=== PATIENT | female | born 1990 | race Hispanic/Latino ===

== ENCOUNTER 2017-02-01 23:49 | Emergency (ER) | payer OTHER ==
[2017-02-02] MEDS ORDERED: Ondansetron HCl/PF 4 MG/2 ML Vial ONE (00:35)
[2017-02-02 00:41] LABS: #Eosinphils 0.2 thou/uL (0.0-0.7); #Lymphocytes 1.8 thou/uL (1.20-3.40); #Monocytes 0.5 thou/uL (0.11-0.59); #Neutrophils 5.8 thou/uL (1.40-6.50); %Basophils 0.5 % (0.0-1.0); %Eosinophils 2.2 % (0.0-10.0); %Lymphocytes 21.8 % (21.0-51.0); %Monocytes 5.6 % (0.0-10.0); Bilirubin Negative (Negative); Blood, Urine Negative (Negative); Glucose, Urine (Dipstick) Negative (Negative); Ketone, Urine Negative (Negative); Mean Platelet Volume 7.3 fL (7.4-10.4); Nitrite Negative (Negative); Protein, Urine (Dipstick) Negative (Neg-Trace); Red Blood Cell (RBC) Count 4.24 mill/uL (4.20-5.40); White Blood Cell (WBC) Count 8.3 thou/uL (4.8-10.8)
[2017-02-02 00:44] LABS: Bacteria/HPF 3+ HPF (None Seen); Hyaline Casts/LPF 4-6 HYALINE CAST LPF (0-3 Hyaline)
[2017-02-02 01:16] LABS: ALT (SGPT) 9 U/L (8-55); AST (SGOT) 14 U/L (5-34); Alkaline Phosphatase 51 U/L (40-150); Anion Gap 11 mmol/L (10-20); BUN (Urea Nitrogen) 4 mg/dL (7.0-18.7); Bilirubin, Total 0.5 mg/dL (0.2-1.2); Calc. Creatinine Clearance 0 mL/min (70-130); Calcium 8.8 mg/dL (7.8-10.44); Carbon Dioxide 23 mmol/L (22-29); Chloride 104 mmol/L (98-107); Estimated GFR-MDRD Greater than 90; Globulin 3.4 g/dL (2.4-3.5); Lipase 28 U/L (8-78); Protein, Total 7.1 g/dL (6.0-8.3)
[2017-02-02] MEDS ORDERED: Potassium Chloride 20 MEQ TAB ONE (01:29)
== END 2017-02-02 02:16 | disposition home or self-care (01) ==
LOC: ERS 23:49
DX: O21.1 Hyperemesis gravidarum with metabolic disturbance (principal); E86.0 Dehydration; O23.12 Infections of bladder in pregnancy, second trimester; Z3A.18 18 weeks gestation of pregnancy
CPT/HCPCS: 80053; 81003; 81015; 83690; 85025; 87086; 96361; 96374; 96375; J0696; J2405

== ENCOUNTER 2017-07-17 00:28 | Day surgery (SDC) | payer OTHER ==
[2017-07-17 01:00] VITALS: BP 110/70; TEMP 98.8; BMI 26.1
--- NOTE | 2017-07-17 01:44 | PDOC.LDHP ---
Labor and Delivery H&P Chief complaint: contractions HPI: 26 year old at 39 wk 0 days based on 6.2 wk sono with FER of 07/24/2017 presents with contractions since 13:00 today. She states that they were originally 30 minutes apart and started to get closer together. She feels them approximately every 20 minutes. She denies any loss of fluid, vaginal discharge , vaginal bleeding, N/V/D, or fever. Patient states her has been uncomplicated except for anemia of which required an iron transfusion on 06/17/2017. She has been taking iron BID and PNV. Patient has a history of infant at one day of age after home delivery in [facility]. Cause of is unknown. ROS: General: Denies fever, chills, loss of appetite HEENT: Denies headache, congestion, sore throat Cards: Denies chest pain or palpitations Resp: Denies cough or shortness of breath GI: Endorses contractions, Denies RUQ pain, N/V/D : Denies LOF, vaginal bleeding, vaginal discharge Psych: Denies anxiety or depression Current gestational age (weeks): 39 Due date: 07/24/17 Dating criteria: first trimester ultrasound (6.2 wk) Grav: 3 Para: 2 OB History Details: 1. sIUP at 39.0 wks 2. GBS negative 3. Anemia of s/p iron transfusion on 06/17/2017 4. Bacterial vaginosis and yeast infection s/p treatment 5. UTI in s/p treatment with CM 6. Hx of , cause unknown Current complications: other (anemia of ) Abnormal US findings: No Past Medical History: No significant PMH Current medications: pre-ceci vitamins, iron Previous surgical history: other (right hand surgery) Social history: none - Physical Exam Vital signs reviewed and normal: yes General: NAD Heart: RRR Lungs: nonlabored breathing Abdomen: gravid Extremeties: no edema FHT: category 1, variability present [place] contractions every: q8-10 min - Vaginal Exam cm dilated: 4 (Nurse @ 1:07) Effacement: 50% Station: -3 - OB Labs Blood type: O RH: positive Antibody Screen: negative HIV: negative RPR: negative HEPSAg: negative 1 hour GCT: negative GBS: negative Rubella: immune - Assessment Term , latent labor - Plan Plan: observation in L&D -: Plan for cervical check in 2 hours. If no cervical change at that time will d/c patient home with return precautions. If there is cervical change, then will admit to L&D for expectant management. <Katiuska Walker - Last Filed: 07/17/17 01:55> <Bola Guan - Last Filed: 07/17/17 02:27> Allergies/Adverse Reactions: Allergies Allergy/AdvReac Type Severity Reaction Status Date / Time No Known Drug Allergies Allergy Verified 07/17/17 00:49 Attending Addendum - Attending Addendum Date/Time: 07/17/17 0227 I personally evaluated the patient and discussed the management with Dr. Fernandez. I agree with the History, Examination, Assessment and Plan. <Bola Guan - Last Filed: 07/17/17 02:27>
--- NOTE | 2017-07-17 03:33 | PDOC.LDPN ---
Labor & Delivery Progress Note - Subjective Subjective: comfortable - Objective Vital signs reviewed and normal: yes General: NAD Uterine fundus: non tender SVE: by nurse @ 3:00 Dilation: 4 Effacement: 50% Station: -3 FHT: category 1, variability present [place] contractions every: q3 min - Assessment (1) Term Code(s): Z34.80 - ENCOUNTER FOR SUPRVSN OF NORMAL , UNSP TRIMESTER Current Visit: Yes Status: Acute Comment: 26 year old at 39.0 wks based on 6.2 wk sono presents with contractions - Cervical check at 03:00 unchanged from 01:00 - Contractions have become more regular and closer together at q3 min, pt relatively asymptomatic during contractions - Plan to d/c patient home with return precautions; Return precautions discussed via lead maintenance technician phone (2) Anemia affecting Code(s): O99.019 - ANEMIA COMPLICATING , UNSPECIFIED TRIMESTER Current Visit: Yes Status: Acute Comment: - s/p iron transfusion on 2017 - Continue iron BID -: D/C home with return precautions <Katiuska Walker - Last Filed: 07/17/17 03:28> Attending Addendum - Attending Addendum Date/Time: 07/17/17 0337 I personally evaluated the patient and discussed the management with Dr. Fernandez. I agree with the History, Examination, Assessment and Plan. <Bola Guan - Last Filed: 07/17/17 03:38>
== END 2017-07-17 03:35 | disposition home or self-care (01) ==
LOC: L&D/OP 00:28
PROVIDERS: ATTEND Obstetrics & Gynecology
DX: O47.1 False labor at or after 37 completed weeks of gestation (principal); O99.013 Anemia complicating pregnancy, third trimester; D64.9 Anemia, unspecified; Z3A.39 39 weeks gestation of pregnancy; Z79.899 Other long term (current) drug therapy; Z98.890 Other specified postprocedural states

== ENCOUNTER 2017-07-17 04:49 | Inpatient (IN) | payer MEDICAID, OTHER, SELFPAY ==
[2017-07-17 05:07] VITALS: BMI 26.1
[2017-07-17] MEDS ORDERED: Acetaminophen 500 MG TAB PO PRN ×2 (05:54→06:47)
--- NOTE | 2017-07-17 06:08 | PDOC.LDHP ---
Labor and Delivery H&P Chief complaint: contractions HPI: 26 year old at 39 wk 0 days based on 6.2 wk sono with FER of 07/24/2017 presents with contractions since 13:00 today. She states that they were originally 30 minutes apart and started to get closer together. She feels them approximately every 5-10 minutes. She denies any loss of fluid, vaginal discharge, N/V/D, or fever. Patient was just discharged approximately 2 hours ago as she had no cervical change within a 2 hour period. Her contractions were closer together, but it was explained that there are two stages of labor, latent and active. She was informed that she was in latent labor and that could last for an unknown period of time from hours to weeks. She was discharged home with return precautions. She returned stating her contractions had become more intense. She has been feeling them every 5-10 minutes. Patient did endorse vaginal bleeding after her last cervical check but states it is no longer present. Patient states her has been uncomplicated except for anemia of which required an iron transfusion on 06/17/2017. She has been taking iron BID and PNV. Patient has a history of infant at one day of age after home delivery in [facility]. Cause of is unknown. ROS: General: Denies fever, chills, loss of appetite HEENT: Denies headache, congestion, sore throat Cards: Denies chest pain or palpitations Resp: Denies cough or shortness of breath GI: Endorses contractions, Denies RUQ pain, N/V/D. Endorses contractions. : Denies LOF, vaginal bleeding, vaginal discharge Psych: Denies anxiety or depression Current gestational age (weeks): 39 Due date: 07/24/17 Dating criteria: last menstrual period, first trimester ultrasound Grav: 3 Para: 2 OB History Details: 1. sIUP at 39.0 wks 2. GBS negative 3. Anemia of s/p iron transfusion on 06/17/2017 4. Bacterial vaginosis and yeast infection s/p treatment 5. UTI in s/p treatment with CM 6. Hx of , cause unknown Current complications: other (anemia of ) Abnormal US findings: No Past Medical History: None Current medications: pre-ceci vitamins, iron Previous surgical history: other (right hand surgery) - Physical Exam Vital signs reviewed and normal: yes General: NAD, breathing through contractions Heart: RRR Lungs: nonlabored breathing Abdomen: gravid Extremeties: no edema FHT: category 1, variability present [place] contractions every: irregular - Vaginal Exam cm dilated: 4 (nurse @ 05:00) Effacement: 50% Station: -3 - OB Labs Blood type: O RH: positive Antibody Screen: negative HIV: negative RPR: negative HEPSAg: negative 1 hour GCT: negative GBS: negative Rubella: immune - Assessment Term , Latent labor - Plan -: Plan for cervical check in 2 hours. If no cervical change at that time will d/c patient home with return precautions. If there is cervical change, then will admit to L&D for expectant management. Pain control with tylenol at this time. Course of labor was discussed with patient in detail. <Katiuska Walker - Last Filed: 07/17/17 06:28> <Bola Guan - Last Filed: 07/17/17 07:19> Allergies/Adverse Reactions: Allergies Allergy/AdvReac Type Severity Reaction Status Date / Time No Known Drug Allergies Allergy Verified 07/17/17 00:49 Attending Addendum - Attending Addendum Date/Time: 07/17/17718 I personally evaluated the patient and discussed the management with Dr. Fernandez. I agree with the History, Examination, Assessment and Plan. <Bola Guan - Last Filed: 07/17/17 07:19>
[2017-07-17] MEDS ORDERED: Ibuprofen 800 MG TAB PO PRN (06:47)
[2017-07-17] MEDS ORDERED: LR / Pitocin 40 units/1000 ml 1,000 ML IV PRN (06:47)
[2017-07-17] MEDS ORDERED: Lidocaine 1% (PF) 30 ML VIAL SC PRN (06:47)
[2017-07-17] MEDS ORDERED: Promethazine HCl 25 MG/ML VIAL IM PRN (06:47)
[2017-07-17] MEDS ORDERED: Ondansetron HCl/PF 4 MG/2 ML Vial IVP PRN (06:47)
--- NOTE | 2017-07-17 06:54 | PDOC.LDPN ---
Labor & Delivery Progress Note - Subjective Subjective: painful contractions - Objective Vital signs reviewed and normal: yes General: breathing through contractions Uterine fundus: non tender SVE: By Aaron @ 06:45 Dilation: 5 Effacement: 50% Station: -2 FHT: category 1, variability present [place] contractions every: irregular - Assessment (1) Anemia affecting Code(s): O99.019 - ANEMIA COMPLICATING , UNSPECIFIED TRIMESTER Current Visit: No Status: Acute Comment: - s/p iron transfusion on 2017 - Continue iron BID (2) Term Code(s): Z34.80 - ENCOUNTER FOR SUPRVSN OF NORMAL , UNSP TRIMESTER Current Visit: No Status: Acute Comment: 26 year old at 39.0 wks based on 6.2 wk sono presents with contractions - Pt returned with contractions q10 minutes and stronger - Initial cervical check at 5:00 was 4/40/-3; 2 hours later cervical check 5/50/ -2 - Will admit to L&D - Patient desires epidural - Will continue expectant management -: Expectant management. Desires epidural. <Katiuska Walker - Last Filed: 07/17/17 06:52> Attending Addendum - Attending Addendum Date/Time: 07/17/17 0720 I personally evaluated the patient and discussed the management with Dr. Fernandez. I agree with the History, Examination, Assessment and Plan. <Bola Guan - Last Filed: 07/17/17 07:21>
[2017-07-17] MEDS: Lactated Ringer's 1,000 ML IV SCH ×2 (07:21→08:30)
[2017-07-17 07:36] LABS: Hemoglobin 11.9 g/dL (12.0-16.0); Mean Corpuscular HGB CONC 33.8 g/dL (32.0-36.0); Mean Corpuscular Hemoglobin 26.6 pg (27.0-31.0); Mean Corpuscular Volume 78.8 fl (81.0-99.0); Mean Platelet Volume 9.8 fL (7.4-10.4); Platelet Count 185 thou/uL (130-400); RBC Distribution Width 19.9 % (11.5-14.5); Red Blood Cell (RBC) Count 4.47 mill/uL (4.20-5.40); White Blood Cell (WBC) Count 7.9 thou/uL (4.8-10.8)
[2017-07-17] MEDS ORDERED: Bupivacaine 0.5% 20 ML, fentaNYL Citrate/PF 400 MCG in Sodium Chloride 0.9% 72 ML EPIDURAL SCH ×2 (07:45→09:15)
[2017-07-17] MEDS ORDERED: DISCONTINUE ALL PREVIOUS NARCOTICS FS SCH (07:45)
[2017-07-17 08:20] LABS: HBSAg Index 0.18 S/CO (0-0.99); Hep B Surf Ag Non-Reactive S/CO (NonReactive); Syphilis Antibody Nonreactive (Nonreactive); Syphilis Antibody Index 0.06 S/CO (<1.00 Non-Reactive)
[2017-07-17] MEDS ORDERED: Eucerin (Mineral Oil/Petrolatum,White) 30 gm Jar TOP PRN (08:58)
[2017-07-17] MEDS ORDERED: ePHEDrine/0.9% NaCl/PF SYRINGE 50 mg/10 ml SLOW IVP PRN (08:58)
[2017-07-17] MEDS ORDERED: Lactated Ringer's 500 ML IV PRN (08:58)
[2017-07-17] MEDS ORDERED: Acetaminophen 325 MG TAB PO PRN (08:58)
[2017-07-17] MEDS ORDERED: Naloxone HCl 0.4 mg/ml Vial IVP PRN ×2 (08:58)
[2017-07-17] MEDS ORDERED: Fentanyl 4mcg/Marcaine 0.1% Cassette 100 ML EPIDURAL SCH (09:00)
[2017-07-17] MEDS ORDERED: Communication Order-Pharmacy FS SCH (09:00)
[2017-07-17] MEDS ORDERED: LR 500 ML/Oxytocin 10 units 500 ML ONE (10:07)
--- NOTE | 2017-07-17 10:13 | PDOC.LDPN ---
Labor & Delivery Progress Note - Subjective Subjective: comfortable - Objective Vital signs reviewed and normal: yes General: resting Uterine fundus: non tender Dilation: 7.5 Effacement: 100% Station: 0 FHT: category 1 (150/mod/+accel/no decel) [place] contractions every: q8-10 - Assessment (1) Anemia affecting Code(s): O99.019 - ANEMIA COMPLICATING , UNSPECIFIED TRIMESTER Current Visit: No Status: Acute Comment: - s/p iron transfusion and iron supplementation - H&H 11.9/35.2 (2) Term Code(s): Z34.80 - ENCOUNTER FOR SUPRN OF NORMAL , UNSP TRIMESTER Current Visit: No Status: Acute Comment: 26 year old at 39.0 wks based on 6.2 wk sono presents with contractions - Last check 7.5/100/0, contractions spaced out - Will start pitocin - Comfortable now with epidural Plan: pitocin for augmentation
[2017-07-17] MEDS ORDERED: LR 500 ML/Oxytocin 10 units 500 ML IV SCH (10:30)
[2017-07-17] MEDS ORDERED: Bupivacaine 0.25% HCL 30 ML VIAL ONE (11:11)
--- NOTE | 2017-07-17 11:28 | PDOC.LDPN ---
Labor & Delivery Progress Note - Subjective Subjective: comfortable - Objective Vital signs reviewed and normal: yes General: resting Uterine fundus: non tender Dilation: 8 Effacement: 100% Station: 0 FHT: category 1 (150/mod/+accel/no decel) [place] contractions every: q2-8 min - Assessment (1) Anemia affecting Code(s): O99.019 - ANEMIA COMPLICATING , UNSPECIFIED TRIMESTER Current Visit: No Status: Acute Comment: - s/p iron transfusion and iron supplementation - H&H 11.9/35.2 (2) Term Code(s): Z34.80 - ENCOUNTER FOR SUPRVSN OF NORMAL , UNSP TRIMESTER Current Visit: No Status: Acute Comment: 26 year old at 39.0 wks based on 6.2 wk sono presents with contractions - Now 8/100/0 - Continue pitocin, consider AROM at next check if no further change - Comfortable with epidural (3) Hx of in prior , currently Code(s): O09.299 - SUPRVSN OF PREG W POOR REPRODCTV OR OBSTET HISTORY, UNSP TRI Current Visit: Yes Status: Acute Comment: - Delivery in [facility] - on DOL 1, etiology unknown - testing all reassuring Plan: continue plan of care, pitocin for augmentation
--- NOTE | 2017-07-17 12:32 | PDOC.LDPN ---
Labor & Delivery Progress Note - Subjective Subjective: comfortable - Objective Vital signs reviewed and normal: yes General: resting Uterine fundus: non tender Dilation: 10 Effacement: 100% Station: 0 FHT: category 1 [place] contractions every: q2-8 AROM: clear fluid - Assessment (1) Anemia affecting Code(s): O99.019 - ANEMIA COMPLICATING , UNSPECIFIED TRIMESTER Current Visit: No Status: Acute Qualifiers: Trimester: unspecified trimester Qualified Code(s): O99.019 - Anemia complicating , unspecified trimester Comment: s/p iron transfusion and iron supplementation H&H 11.9/35.2 (2) Term Code(s): Z34.80 - ENCOUNTER FOR SUPRVSN OF NORMAL , UNSP TRIMESTER Current Visit: No Status: Acute Comment: 26 year old at 39.0 wks based on 6.2 wk sono presents with contractions - Now 10/100/+1 - Continue pitocin, s/p AROM - Comfortable with epidural (3) Hx of in prior , currently Code(s): O09.299 - SUPRVSN OF PREG W POOR REPRODCTV OR OBSTET HISTORY, UNSP TRI Current Visit: Yes Status: Acute Comment: - Delivery in [facility] - on DOL 1, etiology unknown - testing all reassuring Plan: continue plan of care
--- NOTE | 2017-07-17 14:19 | PDOC.OPDEL ---
OB Operative/Delivery Note Delivery Dr/Surgeon: Jayne Guzman MD, Kathy Levi MD, Carley Cerrato MD Pre-Delivery Diagnosis: active labor Procedure/Post Delivery Dx: spontaneous vaginal delivery Weeks gestation: 39 Anesthesia: epidural - Findings A Sex: female - 1 min: 9 - 5 min: 9 - Additional Findings/Plan Placenta delivered: spontaneous Repaired Obstetrical Laceration: 2nd degree (Repaired with 3-0 vicryl) Estimated blood loss: 350 mL Compilations/Other Findings: Delivery Note: This is 26 yo F @ 39.0wks who delivered a viable F infant at 1324 on 07/17/17. Following an uneventful antepartum course, a vigorous female was delivered over an intact perineum in the occipitoanterior position. Anterior Shoulder and then remainder of the body delivered. No nuchal cord. The head was held down and mouth and nares were bulb suctioned. Cord clamped and cut and cord blood collected after delayed cord clamping for 1 minute. Placenta delivered intact with a 3 vessel cord noted. Fundal massage was performed and the fundus was firm. The cervix and vagina were inspected and Laceration noted and repaired with 3-0 vicryl in the usual fashion with good approximation and hemostasis. went to nursery in good condition for routine care. Apgars were 9/9 at 1 & 5 minutes, respectively. Patient tolerated delivery well and went to after routine recovery/care. Post delivery plan: routine recovery <Jayne Guzman - Last Filed: 07/17/17 14:22> Attending Addendum - Attending Addendum Date/Time: 07/17/17 4859 I was present to oversee the uncomplicated delivery by Dr. Guzman and Dr. Levi. <Carley Cerrato - Last Filed: 07/17/17 15:40>
[2017-07-17] MEDS ORDERED: Milk Of Magnesia 30 ML UDCUP PO PRN (15:08)
[2017-07-17] MEDS ORDERED: LR / Pitocin 40 units/1000 ml 1,000 ML IV SCH (15:08)
[2017-07-17] MEDS ORDERED: Bisacodyl 10 MG SUPP PR PRN (15:08)
[2017-07-17] MEDS ORDERED: Ondansetron ODT 4 MG TAB PO PRN (15:08)
[2017-07-17] MEDS ORDERED: Adacel (T-DAP) 0.5 ML VIAL IM ONE (15:08)
[2017-07-17] MEDS: Ferrous Sulfate 325 MG TAB PO SCH (18:21)
[2017-07-17] MEDS: Docusate Calcium (SURFAK) 240 MG CAP PO SCH (21:19)
[2017-07-17] MEDS: Ibuprofen 800 MG TAB PO SCH (21:19)
[2017-07-18] MEDS: Ibuprofen 800 MG TAB PO SCH ×3 (05:15→22:15)
[2017-07-18 05:23] LABS: Hemoglobin 9.9 g/dL (12.0-16.0); Mean Corpuscular HGB CONC 33.5 g/dL (32.0-36.0); Mean Corpuscular Hemoglobin 26.8 pg (27.0-31.0); Mean Platelet Volume 9.8 fL (7.4-10.4); Platelet Count 154 thou/uL (130-400); RBC Distribution Width 20.1 % (11.5-14.5); Red Blood Cell (RBC) Count 3.68 mill/uL (4.20-5.40)
--- NOTE | 2017-07-18 06:54 | PDOC.PP ---
Post Progress Note Post Day #: 1 Subjective: 26 y/o ->2 delivered on 07/17 via . Doing well. Has no complaints. Is tolerating PO, breast feeding without difficulty, but doesn't feel like her milk has come in. Is voiding and passing flatus. Reports lochia that is about the same as a period. PO intake tolerated: yes Flatus: yes Ambulation: yes Vital Signs (12 hours) Temp Pulse Resp BP 07/18/17 03:53 98.3 F 70 16 107/55 L 07/17/17 23:21 98.3 F 77 16 92/51 L 07/17/17 20:00 98.9 F 66 16 07/17/17 19:40 98.9 F 66 16 115/65 Weight Weight 56.699 kg - Physical Examination General: NAD Cardiovascular: no m/r/g, RRR Respiratory: clear to auscultation bilaterally, non-labored breathing Abdominal: + bowel sounds, lochia (similar to a period.), no distention, appropriately TTP Fundus firm & at: just below umbilicus Extremities: negative homans (B) Skin: no rash Neurological: no gross focal deficits Psychiatric: A&Ox3, normal affect Result Diagrams: 07/18/17 05:07 Additional Labs: Post Labs Blood Type O POSITIVE 07/17/17 07:21 Hep Bs Antigen Non-Reactive S/CO (NonReactive) 07/17/17 07:21 (1) Term delivered Code(s): O80 - ENCOUNTER FOR FULL-TERM UNCOMPLICATED DELIVERY Status: Acute Comment: 26 y/o ->2 delivered at 39.0 PPD#1 -continue PNV -Pain controlled with ibuprofen -Hb dropped from 11.9->9.9, continue ferrous sulfate -Continue breast feeding -Plans for depo for contraception (2) Anemia affecting Code(s): O99.019 - ANEMIA COMPLICATING , UNSPECIFIED TRIMESTER Status : Acute QualifierTitle: Trimester: unspecified trimester Qualified Code(s): O99.019 - Anemia complicating , unspecified trimester Comment: s/p iron transfusion and iron supplementation H&H 11.9/35.2 prior to delivery, was 9.9 today -Continue ferrous sulfate - Assessment/Plan Plan for possible d/c later today if patient continues to feel well. <Jayne Guzman - Last Filed: 07/18/17 07:10> Vital Signs (12 hours) Temp Pulse Resp BP 07/18/17 03:53 98.3 F 70 16 107/55 L 07/17/17 23:21 98.3 F 77 16 92/51 L 07/17/17 20:00 98.9 F 66 16 07/17/17 19:40 98.9 F 66 16 115/65 Weight Weight 125 lb Result Diagrams: 07/18/17 05:07 Additional Labs: Post Labs Blood Type O POSITIVE 07/17/17 07:21 Hep Bs Antigen Non-Reactive S/CO (NonReactive) 07/17/17 07:21 <Carley Cerrato - Last Filed: 07/18/17 07:15> Attending Addendum - Attending Addendum Date/Time: 07/18/17 0715 I personally evaluated the patient and discussed the management with Dr. Guzman. I agree with the History, Examination, Assessment and Plan documented above. May d/c later today if desired. <Carley Cerrato - Last Filed: 07/18/17 07:15>
[2017-07-18] MEDS: Prenatal Vitamin 1 TAB PO SCH (08:11)
[2017-07-18] MEDS: Ferrous Sulfate 325 MG TAB PO SCH ×2 (08:11→22:29)
[2017-07-18] MEDS: Docusate Calcium (SURFAK) 240 MG CAP PO SCH ×2 (08:11→22:15)
[2017-07-18] MEDS ORDERED: Benzocaine/Menthol 20-0.5% 60 ML CAN TOP PRN (09:10)
[2017-07-18] MEDS ORDERED: Lanolin Ointment 7 GM TUBE TOP PRN (10:34)
[2017-07-19] MEDS: Ibuprofen 800 MG TAB PO SCH (06:23)
--- NOTE | 2017-07-19 07:27 | PDOC.PP ---
Post Progress Note Post Day #: 2 Subjective: Patient doing well. She reports that she has been up ambulating yesterday and had no difficulties. She had a BM yesterday without much pain. She reports minimal vaginal bleeding that is less than a period. She has been breast feeding and reports that her baby has no difficulties latching. She is tolerating PO well. PO intake tolerated: yes Flatus: yes Ambulation: yes Vital Signs (12 hours) Temp Pulse Resp BP 07/18/17 20:03 98.8 F 94 18 106/51 L Weight Weight 56.699 kg - Physical Examination General: NAD Cardiovascular: no m/r/g, RRR Respiratory: clear to auscultation bilaterally, non-labored breathing Abdominal: + bowel sounds, lochia, appropriately TTP Fundus firm & at: 2cm below the umbilicus Extremities: negative homans (B) Skin: CS incision dry & intact, no rash Neurological: no gross focal deficits Psychiatric: A&Ox3, normal affect Result Diagrams: 07/18/17 05:07 Additional Labs: Post Labs Blood Type O POSITIVE 07/17/17 07:21 Hep Bs Antigen Non-Reactive S/CO (NonReactive) 07/17/17 07:21 (1) Term delivered Code(s): O80 - ENCOUNTER FOR FULL-TERM UNCOMPLICATED DELIVERY Status: Acute Comment: 26 y/o ->2 delivered at 39.0 PPD#2 -continue PNV -Pain controlled with ibuprofen -Hb dropped from 11.9->9.9 on PPD1, continue ferrous sulfate -Continue breast feeding -Plans for depo for contraception (2) Anemia affecting Code(s): O99.019 - ANEMIA COMPLICATING , UNSPECIFIED TRIMESTER Status : Acute Qualifiers: Trimester: unspecified trimester Qualified Code(s): O99.019 - Anemia complicating , unspecified trimester Comment: s/p iron transfusion and iron supplementation H&H 11.9/35.2, dropped to 9.9 on PPD1 -Continue ferrous sulfate - Assessment/Plan d/c home today with f/u in 2 weeks at Clinic
[2017-07-19] MEDS ORDERED: Simethicone Chewable 80 MG TAB PO PRN (07:43)
[2017-07-19] MEDS: Ferrous Sulfate 325 MG TAB PO SCH (09:29)
[2017-07-19] MEDS: Prenatal Vitamin 1 TAB PO SCH (09:29)
[2017-07-19] MEDS: Docusate Calcium (SURFAK) 240 MG CAP PO SCH (09:29)
[2017-07-19 10:17] VITALS: BP 106/56; TEMP 98.1
== END 2017-07-19 11:13 | disposition home or self-care (01) | DRG 775 ==
LOC: L&D/OP 04:49 → L&D 06:56 → 3SE 16:57
PROVIDERS: ADMIT Obstetrics & Gynecology; ATTEND Obstetrics & Gynecology
PROC: 10E0XZZ Delivery of Products of Conception, External Approach (ICD-10-PCS; principal; 2017-07-17)
PROC: 10907ZC Drainage of Amniotic Fluid, Therapeutic from Products of Conception, Via Natural or Artificial Opening (ICD-10-PCS; 2017-07-17)
PROC: 0KQM0ZZ Repair Perineum Muscle, Open Approach (ICD-10-PCS; 2017-07-17)
DX: O99.02 Anemia complicating childbirth (principal); O70.1 Second degree perineal laceration during delivery; Z3A.39 39 weeks gestation of pregnancy; Z37.0 Single live birth; D50.9 Iron deficiency anemia, unspecified; Z79.899 Other long term (current) drug therapy; Z87.59 Personal history of other complications of pregnancy, childbirth and the puerperium
CPT/HCPCS: 36415; 51702; 85027; 86780; 86850; 86900; 86901; 87340; 99283; 99285; J3010; J3490; J7050; J7120; S0020

== ENCOUNTER 2019-12-28 13:51 | Emergency (ER) | payer MEDICAID, SELFPAY ==
[2019-12-28 14:39] LABS: #Basophils 0.1 thou/uL (0.0-0.2); #Eosinphils 0.1 thou/uL (0.0-0.7); #Lymphocytes 1.8 thou/uL (1.20-3.40); #Monocytes 0.4 thou/uL (0.11-0.59); %Basophils 1.3 % (0.0-1.0); %Eosinophils 1.5 % (0.0-10.0); %Lymphocytes 28.1 % (21.0-51.0); %Monocytes 6.5 % (0.0-10.0); %Neutrophils 62.6 % (42.0-75.0); Hemoglobin 13.9 g/dL (12.0-16.0); Mean Corpuscular HGB CONC 34.3 g/dL (32.0-36.0); Mean Corpuscular Hemoglobin 28.9 pg (27.0-31.0); Mean Corpuscular Volume 84.2 fL (78.0-98.0); Mean Platelet Volume 7.4 fL (7.4-10.4); Platelet Count 254 thou/uL (130-400); RBC Distribution Width 12.2 % (11.5-14.5); Red Blood Cell (RBC) Count 4.82 mill/uL (4.20-5.40); White Blood Cell (WBC) Count 6.4 thou/uL (4.8-10.8)
[2019-12-28 14:57] LABS: Bilirubin Negative (Negative); Blood, Urine 3+ (Negative); Clarity Clear (Clear); Glucose, Urine (Dipstick) Normal (Negative); Ketone, Urine Negative (Negative); Leukocyte 500 Leu/uL (Negative); Nitrite Negative (Negative); Protein, Urine (Dipstick) Negative (Neg-Trace); RBC/HPF 0-3 HPF (0-3); Specific Gravity, Urine 1.015 (1.002-1.036); Urobilinogen Normal mg/dL (Less than 2)
[2019-12-28 14:59] LABS: Bacteria/HPF 1+ HPF (None Seen); Sperm/HPF Rare HPF (None Seen)
--- NOTE | 2019-12-28 15:55 | ULT ---
US Pelvic Transvag W Doppler History: Pain. Vaginal bleeding Comparison: None. Findings: Real-time grayscale, color and spectral analysis of the pelvis was performed transabdominal and transvaginal approach. Failed intrauterine . There is intrauterine gestational sac with pole present although there is a very large subchorionic hemorrhage. No heart tones are appreciated. No free fluid in the pelvis. Adequate vascular flow to the left ovary. Right ovary is not visualized. Impression: 1. Failed intrauterine with large perigestational hemorrhage. No heart tones are appr eciated. 2. Nonvisualization of the right ovary. 3. Normal appearance left ovary with corpus luteal cyst. Ordering provider notified of findings via telephone at 3:40 PM
== END 2019-12-28 17:11 | disposition home or self-care (01) ==
LOC: ERS 13:51
DX: O03.4 Incomplete spontaneous abortion without complication (principal); O23.41 Unspecified infection of urinary tract in pregnancy, first trimester; Z3A.09 9 weeks gestation of pregnancy
CPT/HCPCS: 36415; 76856; 81003; 81015; 84702; 85025; 86900; 86901; 93976

== ENCOUNTER 2019-12-31 11:17 | Emergency (ER) | payer SELFPAY ==
[2019-12-31 11:59] LABS: #Eosinphils 0.1 thou/uL (0.0-0.7); #Lymphocytes 1.7 thou/uL (1.20-3.40); #Monocytes 0.4 thou/uL (0.11-0.59); #Neutrophils 3.8 thou/uL (1.40-6.50); %Basophils 0.8 % (0.0-1.0); %Lymphocytes 27.3 % (21.0-51.0); Hemoglobin 13.2 g/dL (12.0-16.0); Mean Corpuscular HGB CONC 34.6 g/dL (32.0-36.0); Mean Corpuscular Hemoglobin 29.2 pg (27.0-31.0); Mean Corpuscular Volume 84.4 fL (78.0-98.0); Mean Platelet Volume 7.1 fL (7.4-10.4); Platelet Count 227 thou/uL (130-400); RBC Distribution Width 12.1 % (11.5-14.5); Red Blood Cell (RBC) Count 4.52 mill/uL (4.20-5.40); White Blood Cell (WBC) Count 6.1 thou/uL (4.8-10.8)
--- NOTE | 2019-12-31 12:29 | ULT ---
First trimester pelvic ultrasound: 12/31/2019 COMPARISON: 12/28/2019 HISTORY: Pelvic pain with vaginal bleeding TECHNIQUE: Multiplanar grayscale sonographic imaging of the pelvis obtained with transabdominal imagi ng. The left ovary is assessed with Doppler interrogation including color flow and spectral analysis. FINDINGS: There is an intrauterine gestational sac present. Intrauterine gestational sac contains a s cornelio pole. As on the prior examination, no heart tones are seen consistent with a failed . There is a large adjacent subchorionic hemorrhage measuring up to approximately 3-4 cm. Right ovary could not be visualized on this exam. The uterus measures 9.5 x 6.4 x 8.1 cm. Left ovary measures 2.7 x 2.1 x 2.4 cm and demonstrates normal blood flow without evidence for mass. The gestational sac diameter is 2.4 cm correlating with a 7 week 3 day gestation while the crown-rump length is 2.1 cm correlating with an 8 week 5 day gestation. Average age based on ultrasound is 8 weeks 1 days IMPRESSION: Intrauterine gestational sac with no heart tones as before, consistent with failed . There is associated subchorionic hemorrhage as detailed above.
[2019-12-31] MEDS ORDERED: HYDROcodone/Acetaminophen 5/325 mg Tablet ONE (12:43)
== END 2019-12-31 13:38 | disposition home or self-care (01) ==
LOC: ERS 11:17
DX: O03.4 Incomplete spontaneous abortion without complication (principal)
CPT/HCPCS: 36415; 76856; 84702; 85025; 93976